=== PATIENT | female | born 1970 | race Caucasian/White ===

== ENCOUNTER → 2024-11-27 10:15 | Outpatient (REF) | payer OTHER, SELFPAY | LOC: HWRCS 10:15 | PROVIDERS: ATTENDING PHYSICIAN Internal Medicine Cardiovascular Disease | DX: Z86.79 Personal history of other diseases of the circulatory system (principal); Q23.1 Congenital insufficiency of aortic valve; I35.1 Nonrheumatic aortic (valve) insufficiency | CPT/HCPCS: 93306 ==